=== PATIENT | female | born 1970 | race Caucasian/White ===

== ENCOUNTER 2021-11-29 22:11 | Emergency (ER) | payer BC, OTHER ==
[2021-11-29] MEDS ORDERED: ONDANSETRON 4 MG/2 ML VIAL IVP STA (22:35)
[2021-11-29] MEDS ORDERED: SODIUM CHLORIDE 0.9% 1,000 ML IV STA (22:35)
[2021-11-29 23:07] LABS: BASOPHILS % (AUTO) 0.5 %; EOSINOPHILS % (AUTO) 0.2 %; HCT - HEMATOCRIT 37.4 % (37.0-47.0); HGB - HEMOGLOBIN 12.9 g/dL (12.0-16.0); LYMPHOCYTES # (AUTO) 0.7 10^3/uL (1.5-3.5); LYMPHOCYTES % (AUTO) 11.7 %; MEAN CORPUSCULAR HEMOGLOBIN 29.4 pg (27.0-31.0); MEAN CORPUSCULAR HGB CONC 34.5 g/dL (32.0-36.0); MEAN CORPUSCULAR VOLUME 85.2 fL (81.0-99.0); MONOCYTES # (AUTO) 0.3 10^3/uL (0.0-1.0); MONOCYTES % (AUTO) 4.3 %; PLT - PLATELET COUNT 250 10^3/uL (130-450); RED BLOOD COUNT 4.39 10^6/uL (4.20-5.40); RED CELL DISTRIBUTION WIDTH 12.2 % (12.0-15.0); WHITE BLOOD COUNT 6.1 x10^3/uL (4.8-10.8)
[2021-11-29 23:21] LABS: ALBUMIN 4.2 g/dL (3.2-5.5); ALBUMIN/GLOBULIN RATIO 1.3 (1.0-2.2); BILIRUBIN,TOTAL 0.8 mg/dL (0.2-1.0); CALCIUM 9.3 mg/dL (8.5-10.3); CREATININE 0.6 mg/dL (0.4-1.0); POTASSIUM 3.4 mmol/L (3.5-5.0); TOTAL PROTEIN 7.4 g/dL (6.7-8.2)
--- NOTE | 2021-11-29 23:44 | ED Physician Documentation ---
PD HPI NVD - Stated complaint Stated Complaint: VOMITING/DIARRHEA - Chief complaint Chief Complaint: Abd Pain - Additonal information Additional information: Patient is a 51-year-old female presenting to the emergency department with chief complaint of nausea, vomiting, diarrhea. Symptoms began shortly after she took Dulcolax suppository and MiraLAX as part of a bowel prep for colonoscopy that is scheduled for 0900 hrs. tomorrow morning.Reports that she was having some numbness in her hands and feet. Denies Fever, chills, chest pain, shortness of breath. Review of Systems Ten Systems: 10 systems reviewed and negative Constitutional: denies: Fever Eyes: denies: Loss of vision Ears: denies: Loss of hearing GI: reports: Nausea, Vomiting, Diarrhea PD PAST MEDICAL HISTORY - Present Medications Home Medications: Ambulatory Orders Medication Instructions Recorded Confirmed No Known Home Medications 11/29/21 11/29/21 - Allergies Allergies/Adverse Reactions: Allergies Allergy/AdvReac Type Severity Reaction Status Date / Time No Known Drug Allergies Allergy Verified 11/29/21 22:21 PD ED PE NORMAL - General General: Alert and oriented X 3 - HEENT HEENT: Atraumatic - Neck Neck: Supple, no meningeal sign - Cardiac Cardiac: RRR - Respiratory Respiratory: No respiratory distress - Abdomen Abdomen: Normal bowel sounds, Soft, Non tender, Non distended, No organomegaly, Other - Female Female : Deferred - Rectal Rectal: Deferred - Derm Derm: Normal color - Extremities Extremities: No deformity - Neuro Neuro: Alert and oriented X 3, multimedia developer 2-12 intact, No motor deficit, No sensory deficit, Normal speech Results - Vitals Vitals: Vital Signs - 24 hr 11/29/21 11/29/21 22:16 23:16 Temperature 36.2 C L 36.4 C L Heart Rate 72 74 Respiratory 18 14 Rate Blood Pressure 118/85 H 142/84 H O2 Saturation 95 98 Oxygen O2 Source Room air - EKG (time done) 2244 Rate: Rate (enter#) (71) Rhythm: NSR [place]: Normal Intervals: Normal [place] QRS: Normal Ischemia: Normal ST segments Computer interpretation: Agree with computer - Labs Labs: Laboratory Tests 11/29/21 11/29/21 11/29/21 23:00 23:00 23:00 WBC 6.1 RBC 4.39 Hgb 12.9 Hct 37.4 MCV 85.2 MCH 29.4 MCHC 34.5 RDW 12.2 Plt Count 250 MPV 11.0 H Neut # (Auto) 5.0 Lymph # (Auto) 0.7 L [place] # (Auto) 0.3 Eos # (Auto) 0.0 Baso # (Auto) 0.0 Absolute Nucleated RBC 0.00 Nucleated RBC % 0.0 Sodium 136 Potassium 3.4 L Chloride 100 L Carbon Dioxide 24 Anion Gap 12.0 BUN 11 Creatinine 0.6 Estimated GFR (MDRD) 106 Glucose 119 H Calcium 9.3 Total Bilirubin 0.8 AST 18 ALT 14 Alkaline Phosphatase 46 Troponin I High Sens < 2.3 L Total Protein 7.4 Albumin 4.2 Globulin 3.2 Albumin/Globulin Ratio 1.3 Lipase 27 PD MEDICAL DECISION MAKING - ED course Complexity details: re-evaluated patient, d/w patient ED course: Patient is a 51-year-old female who presented to the emergency department with nausea, vomiting, diarrhea that occurred earlier today after taking a bowel prep for colonoscopy that is scheduled tomorrow morning. Afebrile, hemodynamically stable on arrival to the emergency department. Abdominal exam benign. Given IV hydration. EKG is on but was negative for indications of acute cardiac ischemia or dysrhythmia. Labs obtained demonstrated a very minimal hypokalemia with potassium of 3.4 but were otherwise within normal limits or nonactionable. Patient was monitored in the emergency department for a few hours. Reported feeling significantly better. Will discharge with Zofran starter pack. Encouraged follow-up with primary care and continued follow-up with GI for her colonoscopy in the morning. Departure - Departure Disposition: 01 Home, Self Care Clinical Impression: Vomiting, Diarrhea Comments: Thank you for allowing us to care for today at [facility]. The test performed in the emergency department today were all very reassuring. I will be discharging you with some medication you can take for any ongoing nausea. Please continue to follow the bowel prep regimen outlined by your workplace trainer and assessor. If it anytime you have any new or worsening symptoms please not hesitate to return to the emergency department. Discharge Date/Time: 11/30/21 00:05
[2021-11-29] MEDS ORDERED: ONDANSETRON ODT 4 MG Prepack 2 TL PRN (23:48)
[2021-11-30 00:01] VITALS: BP 142/84
== END 2021-11-30 00:05 | disposition home or self-care (01) ==
LOC: ED 22:11
DX: R11.2 Nausea with vomiting, unspecified (principal); R19.7 Diarrhea, unspecified; E87.6 Hypokalemia
CPT/HCPCS: 36415; 80053; 83690; 84484; 85025; 93005; 96374; 99282

== ENCOUNTER 2024-04-28 17:15 | Emergency (ER) | payer OTHER ==
--- NOTE | 2024-04-28 17:43 | ED Physician Documentation ---
History of Present Illness - Stated complaint Stated Complaint: AFIB - Chief complaint Chief Complaint: Cardiac - History obtained from History obtained from: Patient - History of Present Illness Timing: Today Pain level max: 0 Pain level now: 0 - Additonal information Additional information: 53-year-old female presents to the emergency department stating that she had palpitations starting earlier today. She states that she went to the walk-in clinic as her Apple Watch said it was atrial fibrillation. There she had an EKG which confirmed atrial flutter versus atrial fibs. Heart rate 124. Sent here for evaluation. Did not have any chest pain. Did feel mildly short of breath. No nausea or vomiting. No lightheadedness. She states that she has had palpitations on and off for several years. A few years ago she had a Zio patch but did not find any arrhythmias that she was aware of. She is not on any medications. Does not smoke. She does drink alcohol but only on weekends. She states she had a normal cardiac stress test a few years ago. Her PCP is at the [facility]. Review of Systems Constitutional: denies: Fever, Chills GI: denies: Vomiting, Diarrhea Skin: denies: Rash Musculoskeletal: denies: Neck pain, Back pain Neurologic: denies: Headache PD PAST MEDICAL HISTORY - Past Medical History Past Medical History: No - Past Surgical History Past Surgical History: No - Present Medications Home Medications: Ambulatory Orders Medication Instructions Recorded Confirmed No Known Home Medications 11/29/21 04/28/24 - Allergies Allergies/Adverse Reactions: Allergies Allergy/AdvReac Type Severity Reaction Status Date / Time No Known Drug Allergies Allergy Verified 04/28/24 17:25 - Social History Does the pt smoke?: No Smoking Status: Never smoker Does the pt drink ETOH?: Yes ETOH Use: Wine Does the pt have substance abuse?: No PD ED PE NORMAL - Vitals Vital signs reviewed: Yes - General General: Alert and oriented X 3, No acute distress - HEENT HEENT: Moist mucous membranes - Neck Neck: Supple, no meningeal sign - Cardiac Cardiac: RRR, Strong equal pulses - Respiratory Respiratory: No respiratory distress, Clear bilaterally - Abdomen Abdomen: Soft, Non tender, Non distended - Derm Derm: Warm and dry - Extremities Extremities: No edema, No calf tenderness / cord - Neuro Neuro: Alert and oriented X 3 - Psych Psych: Normal mood, Normal affect Results - Vitals Vitals: Vital Signs - 24 hr 04/28/24 04/28/24 04/28/24 17:21 17:52 17:58 Temperature 36.7 C Heart Rate 97 82 Respiratory 18 15 Rate Blood Pressure 133/86 H 131/72 H Blood Pressure 127/79 [Left] O2 Saturation 97 97 04/28/24 18:43 Temperature 36.3 C L Heart Rate 87 Respiratory 17 Rate Blood Pressure 112/88 H Blood Pressure [Left] O2 Saturation 96 Oxygen O2 Source Room air - EKG (time done) 1733 EKG releavant findings:: EKG personally interpreted by author of this note. Relevant findings are: Rate: Rate (enter#) (85) Rhythm: NSR [place]: Normal Intervals: Normal [place] QRS: Normal Ischemia: Normal ST segments - Labs Labs: Laboratory Tests 04/28/24 04/28/24 17:45 17:45 WBC 4.7 L RBC 4.50 Hgb 12.9 Hct 39.4 MCV 87.6 MCH 28.7 MCHC 32.7 RDW 12.1 Plt Count 252 MPV 10.5 Neut # (Auto) 3.3 Lymph # (Auto) 1.0 L [place] # (Auto) 0.3 Eos # (Auto) 0.1 Baso # (Auto) 0.0 Absolute Nucleated RBC 0.00 Nucleated RBC % 0.0 Sodium 140 Potassium 3.7 Chloride 105 Carbon Dioxide 29 Anion Gap 6.0 BUN 14 Creatinine 0.8 Estimated GFR (MDRD) 75 L Glucose 99 Calcium 9.5 Total Bilirubin 0.4 AST 14 ALT 12 Alkaline Phosphatase 63 Troponin I High Sens 2.9 Total Protein 6.5 Albumin 4.4 Globulin 2.1 Albumin/Globulin Ratio 2.1 Lipase 19 - Rads (name of study) cxr Relevant Findings:: Final report received, See rad report PD Medical Decision Making - ED course Complexity details: reviewed results, re-evaluated patient, considered diff erential, d/w patient, d/w family ED course: Patient is asymptomatic here. Her [id number] score is 1. Therefore recommend baby aspirin daily. She has a PCP at the [facility]. Recommend she see cardiology as well. Copies of her EKG here and from the walk-in clinic were given to her to take with her. No significant lab abnormalities. Spontaneously converted back to sinus rhythm. No chest pain. She is asymptomatic in the emergency department with no recurrence of A-fib/a flutter. No acute findings on chest x-ray. Patient counseled regarding signs and symptoms for which I believe and urgent re-evaluation would be necessary. Patient with good understanding of and agreement to plan and is comfortable going home at this time This document was made in part using voice recognition software. While efforts are made to proofread this document, sound alike and grammatical errors may occur. Departure - Departure Disposition: 01 Home, Self Care Clinical Impression: Paroxysmal atrial fibrillation Condition: Good Instructions: ED Afib Follow-Up: your,doctor in 1 week [Other] Comments: You were in atrial fibrillation versus atrial flutter today, but have spo ntaneously converted back out of this. It is recommended that you start on a baby (81mg) aspirin daily, until you have been cleared by your doctor and/or cardiology. They will likely want to perform another cardiac stress test and potentially a cardiac echo. Please return if you develop chest pain, symptoms that do not resolve or any other new or worrisome symptoms. Forms: PCP List Discharge Date/Time: 04/28/24 18:45
[2024-04-28 17:49] LABS: BASOPHILS % (AUTO) 0.6 %; EOSINOPHILS # (AUTO) 0.1 10^3/uL (0.0-0.7); EOSINOPHILS % (AUTO) 1.5 %; HCT - HEMATOCRIT 39.4 % (37.0-47.0); HGB - HEMOGLOBIN 12.9 g/dL (12.0-16.0); MEAN CORPUSCULAR HEMOGLOBIN 28.7 pg (27.0-31.0); MEAN CORPUSCULAR HGB CONC 32.7 g/dL (32.0-36.0); MEAN CORPUSCULAR VOLUME 87.6 fL (81.0-99.0); MEAN PLATELET VOLUME 10.5 fL (7.9-10.8); MONOCYTES # (AUTO) 0.3 10^3/uL (0.0-1.0); MONOCYTES % (AUTO) 6.6 %; NEUTROPHILS # (AUTO) 3.3 10^3/uL (1.5-6.6); NEUTROPHILS % (AUTO) 69.1 %; PLT - PLATELET COUNT 252 10^3/uL (130-450); RED CELL DISTRIBUTION WIDTH 12.1 % (12.0-15.0); WHITE BLOOD COUNT 4.7 x10^3/uL (4.8-10.8)
--- NOTE | 2024-04-28 18:02 | XRAY Report ---
PROCEDURE: Chest 1V INDICATIONS: Chest pain TECHNIQUE: One view of the chest was acquired. COMPARISON: None. FINDINGS: Surgical changes and devices: None. Lungs and pleura: No pleural effusions or pneumothorax. Lungs are clear. Mediastinum: Mediastinal contours appear normal. Heart size is normal. Bones and chest wall: No suspicious bony lesions. Overlying soft tissues appear unremarkable. IMPRESSION: Portable chest within normal limits for age. Reviewed by: Georges Kent MD on 04/28/2024 5:01 PM ELISHA Approved by: Georges Kent MD on 04/28/2024 5:01 PM ELISHA Station ID: [id number]
[2024-04-28 18:07] LABS: ALBUMIN 4.4 g/dL (3.2-5.5); ALBUMIN/GLOBULIN RATIO 2.1 (1.0-2.2); BILIRUBIN,TOTAL 0.4 mg/dL (0.2-1.0); CALCIUM 9.5 mg/dL (8.5-10.3); CREATININE 0.8 mg/dL (0.6-1.3); POTASSIUM 3.7 mmol/L (3.5-4.5); TOTAL PROTEIN 6.5 g/dL (6.4-8.9)
[2024-04-28 18:10] LABS: TROPONIN I HIGH SENSITIVITY 2.9 ng/L (2.3-14.8)
[2024-04-28 18:52] VITALS: BP 112/88; O2SAT 96
== END 2024-04-28 18:45 | disposition home or self-care (01) ==
LOC: ED 17:15
DX: I48.0 Paroxysmal atrial fibrillation (principal)
CPT/HCPCS: 36415; 80053; 83690; 84484; 85025; 93005; 99283; 99284